=== PATIENT | female | born 1995 | race Caucasian/White ===

== ENCOUNTER 2019-09-22 20:49 | Emergency (ER) | payer OTHER ==
[~2019-09-22] VITALS: Ht 162.6 cm; Wt 104.7 kg
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
[2019-09-22] MEDS ORDERED: SERT50TA PO (21:07)
[2019-09-22 21:08] VITALS: BP 131/92
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
== END 2019-09-22 21:55 | disposition home or self-care (01) ==
LOC: ER 20:49
DX: S00.03XA Contusion of scalp, initial encounter (principal); R42 Dizziness and giddiness; R60.0 Localized edema; E04.9 Nontoxic goiter, unspecified; Z98.890 Other specified postprocedural states; Y08.89XA Assault by other specified means, initial encounter; Y93.89 Activity, other specified; Y92.89 Other specified places as the place of occurrence of the external cause; Y99.8 Other external cause status
CPT/HCPCS: 70450; 72125; 99285

== ENCOUNTER 2019-10-08 08:59 | Emergency (ER) | payer OTHER ==
[~2019-10-08] VITALS: Ht 162.6 cm; Wt 108.0 kg
[~2019-10-08 08:59] MED LIST: SERT50TA PO
[2019-10-08 09:15] VITALS: BP 117/78
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
--- NOTE | 2019-10-08 09:57 | RAD ---
CT scan of the facial bones without contrast 10/08/2019 CLINICAL HISTORY: Left mandibular pain. TECHNIQUE: Unenhanced, contiguous, 0.625 mm axial sections were obtained through the facial bones and orbits. 3 mm reconstructed sagittal, axial and coronal images were obtained. One or more of the following individualized dose reduction techniques were utilized for this study: 1. Automated exposure control. 2. Adjustment of the mA and/or kV according to patient size. 3. Use of iterative reconstruction technique. FINDINGS: No facial bone fractures seen. Both orbits are intact. Mild mucosal thickening is seen scattered throughout the paranasal sinuses. No air-fluid level is seen. The mastoid air cells and middle ear cavities are well aerated and are clear. The TMJs are intact. A fairly large caries is seen involving the anterior medial aspect of the left lower first molar. Impression: Mild mucosal thickening in seen scattered throughout the paranasal sinuses. No acute abnormality is seen. Electronically signed by: Timoteo Spann MD (10/08/2019 9:54 AM) [id number]
== END 2019-10-08 10:20 | disposition home or self-care (01) ==
LOC: ER 08:59
DX: S00.83XA Contusion of other part of head, initial encounter (principal); Y08.89XA Assault by other specified means, initial encounter; Y93.89 Activity, other specified; Y92.148 Other place in prison as the place of occurrence of the external cause; Y99.8 Other external cause status
CPT/HCPCS: 70486; 99284-25

== ENCOUNTER 2020-08-09 06:32 | Emergency (ER) | payer OTHER ==
[~2020-08-09] VITALS: Ht 162.6 cm; Wt 108.0 kg
[2020-08-09 06:42] VITALS: BP 124/83
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
== END 2020-08-09 08:30 | disposition home or self-care (01) ==
LOC: ER 06:32
DX: S09.90XA Unspecified injury of head, initial encounter (principal); W20.8XXA Other cause of strike by thrown, projected or falling object, initial encounter; Y93.89 Activity, other specified; Y92.89 Other specified places as the place of occurrence of the external cause; Y99.8 Other external cause status
CPT/HCPCS: 70450; 99284-25

== ENCOUNTER 2020-08-24 21:16 | Emergency (ER) | payer MEDICAID, OTHER ==
[~2020-08-24] VITALS: Ht 162.6 cm; Wt 100.0 kg
[2020-08-24] MEDS ORDERED: ONDANSETRON PF 4 MG/2 ML VIAL. ONE (21:32)
[2020-08-24] MEDS ORDERED: MORPHINE SULFATE 4 MG/ML DISP.SYRIN. ONE (21:33)
[2020-08-24] MEDS ORDERED: CONTRAST GIVEN. MC PRN (21:45)
[2020-08-24] MEDS ORDERED: HYDROmorphone PF 1 MG/ML DISP.SYRIN ONE (21:48)
--- NOTE | 2020-08-24 21:49 | PHYS DOC ---
Past History Past Medical History: Anxiety, Ovarian Cyst Additional Past Medical Histor: PCOS Past Surgical History: Other Additional Past Surgical Histo: Lt knee-repair of her ACL, MCL, and meniscus repair Alcohol Use: Occasionally General Adult EDM: Chief Complaint: ABDOMINAL PAIN HPI: HPI: 25-year-old female presents with sudden onset right lower quadrant abdominal pain. The patient ate around 1730 and developed pain around 1800. She describes it as an intense cramping sensation. It is 9 out of 10. She was lying on the floor in pain at home. The patient had a similar episode 6 months ago and was seen at another facility. It was a less intense episode but in the same area. All of her work-up at that time was negative. There were no cysts seen on ultrasound. Patient denies fever or chills. She has had vomiting. Review of Systems: Review of Systems: Constitutional: Denies fever or chills Eyes: Denies change in visual acuity HENT: Denies nasal congestion or sore throat Respiratory: Denies cough or shortness of breath Cardiovascular: Denies chest pain or edema GI: Right lower quadrant abdominal pain, nausea, vomiting. Denies bloody stools or diarrhea : Denies dysuria Musculoskeletal: Denies back pain or joint pain Integument: Denies rash Neurologic: Denies headache, focal weakness or sensory changes Endocrine: Denies polyuria or polydipsia Lymphatic: Denies swollen glands Psychiatric: Denies depression or anxiety Current Medications: Current Meds: Current Medications Medications (Trade) Dose Ordered Sig/Deneen Start Time Stop Time Status Last Admin Dose Admin Info (Do NOT chart on this entry -- for MONITORING) 1 each PRN DAILY PRN 08/24/20 21:45 08/26/20 21:44 Iohexol (Omnipaque 300 Mg/ml) 75 ml 1X ONCE 08/24/20 22:00 08/24/20 22:01 Morphine Sulfate (Morphine 4mg Syringe) 4 mg 1X ONCE 08/24/20 22:00 08/24/20 22:01 08/24/20 21:43 4 MG Ondansetron HCl (Zofran) 4 mg 1X ONCE 08/24/20 22:00 08/24/20 22:01 08/24/20 21:43 4 MG Sodium Chloride 1,000 ml @ 1,000 mls/hr 1X ONCE 08/24/20 22:00 08/24/20 22:59 08/24/20 21:43 1,000 MLS/HR Allergies: Allergies: Allergies Coded Allergies Type Severity Reaction Last Updated Verified No Known Drug Allergies 08/24/20 No Physical Exam: PE: Constitutional: Well developed, well nourished, obese, no acute distress, non- toxic appearance. [] HENT: Normocephalic, atraumatic, bilateral external ears normal, oropharynx mois t, no oral exudates, nose normal. [] Eyes: PERRLA, EOMI, conjunctiva normal, no discharge. [] Neck: Normal range of motion, no tenderness, supple, no stridor. [] Cardiovascular: Heart rate regular rhythm, no murmur [] Lungs & Thorax: Bilateral breath sounds clear to auscultation [] Abdomen: Bowel sounds normal, soft, moderate right lower quadrant tenderness with rebound, no masses, no pulsatile masses. [] Skin: Warm, dry, no erythema, no rash. [] Back: No tenderness, no CVA tenderness. [] Extremities: No tenderness, no cyanosis, no clubbing, ROM intact, no edema. [] Neurologic: Alert and oriented X 3, normal motor function, normal sensory function, no focal deficits noted. [] Psychologic: Affect normal, judgement normal, mood normal. [] Current Patient Data: Vital Signs: Vital Signs Date Time Temp Pulse Resp B/P (MAP) Pulse Ox O2 Delivery O2 Flow Rate FiO2 08/24/20 21:43 18 08/24/20 21:25 73 145/47 (79) 99 EKG: EKG: Sinus rhythm, rate 79, normal axis, no ST elevation or depression. [] Radiology/Procedures: Radiology/Procedures: [] Impressions: CTM pelvis with contrast dated 08/24/2020. No comparison available. Clinical data indication: Right lower quadrant pain. TECHNIQUE: Contiguous axial imaging the abdomen pelvis performed after the administration of 75 cc Omnipaque 300. One or more of the following individualized dose reduction techniques were utilized for this examination: 1. Automated exposure control 2. Adjustment of the mA and/or kV according to patient size 3. Use of iterative reconstruction technique. FINDINGS: Limited images of lung bases are clear. Heart size is upper limits of normal. No pleural or pericardial effusion. Liver is of diffuse low density suggesting mild fatty infiltration. There is a vague low-density focus within the inferior right lobe liver on image 25 that measures 1.7 cm. No biliary ductal dilatation. Gallbladder unremarkable. Spleen is normal in size. Pancreas and adrenal glands are unremarkable. There is a 4 mm calcific stone at the distal right ureter with mild proximal hydroureter and hydronephrosis. Asymmetric diminished enhancement the right kidney compared to left side. No left-sided stone or hydronephrosis. Unopacified GI tract normal in caliber and contour. No focal bowel wall thickening. No inflammatory stranding in the mesentery. Appendix normal in caliber. No ascites or lymphadenopathy. Abdominal aorta normal in caliber. Images of pelvis show nondistended urinary bladder. Uterus and adnexa are unremarkable. No free fluid or pelvic lymphadenopathy. Bone windows show no acute findings. Multilevel spondylosis. IMPRESSION: 1. There is a 4 mm calcific stone at the distal right ureter with mild obstructive uropathy. 2. Normal appendix. 3. Mild fatty infiltration of the liver. 4. There is an indeterminate vague low-density focus within the inferior right lobe liver. Follow-up hepatic MRI or ultrasound better evaluate. Electronically signed by: Dav Snow MD (08/24/2020 11:27 PM) [facility] [place] AND SIGNED BY: DAV SNOW MD DATE: 08/24/202322 CC: ADITHYA VALDES DO; PCP,NO ~MTH0 0 Heart Score: C/O Chest Pain: No Risk Factors: Risk Factors: DM, Current or recent (<one month) smoker, HTN, HLP, family history of CAD, obesity. Risk Scores: Score 0 - 3: 2.5% MACE over next 6 weeks - Discharge Home Score 4 - 6: 20.3% MACE over next 6 weeks - Admit for Clinical Observation Score 7 - 10: 72.7% MACE over next 6 weeks - Early Invasive Strategies Course & Med Decision Making: Course & Med Decision Making Pertinent Labs and Imaging studies reviewed. (See chart for details) The patient's labs are unremarkable. On arrival she was in quite a bit of discomfort. She was given from 4 mg of Zofran and 4 mg of morphine. She required an additional 2 doses of 1 mg of Dilaudid each for pain control. No urinary tract infection. CT scan shows a 4 mm distal ureteral stone. See official read for details. Creatinine is 1.1. Is still possible that this could pass. I will give the patient [place] 7.5 for home. She will follow-up with urology. She is stable for discharge at this time. [] Mary Disclaimer: Mary Disclaimer: This electronic medical record was generated, in whole or in part, using a voice recognition dictation system. Departure Departure: Impression: Primary Impression: Kidney stone on right side Disposition: HOME / SELF CARE / HOMELESS Condition: STABLE Referrals: PCP,JABARI (PCP) Patient Instructions: Kidney Stones, [id number] Scripts Hydrocodone Bit/Acetaminophen (HYDROCODONE-APAP 7.5-325 ) 1 Each Tablet 1 TAB PO PRN Q6HRS PRN for PAIN, #20 TAB 0 Refills Prov: ADITHYA VALDES DO 08/25/20 ADITHYA VALDES DO Aug 24, 2020 21:49
[2020-08-24] MEDS ORDERED: ONDANSETRON PF 4 MG/2 ML VIAL. IVP ONE ×2 (22:00)
[2020-08-24] MEDS ORDERED: IOHEXOL 300 MG/ML 75 ML VIAL. IV ONE (22:00)
[2020-08-24] MEDS ORDERED: PROCHLORPERAZINE 10 MG/2 ML VIAL. IV ONE (22:00)
[2020-08-24] MEDS ORDERED: MORPHINE SULFATE 4 MG/ML DISP.SYRIN. IV ONE (22:00)
[2020-08-24] MEDS ORDERED: HYDROmorphone PF 1 MG/ML DISP.SYRIN IVP ONE ×2 (22:00→23:00)
[2020-08-24] MEDS ORDERED: IV NORMAL SALINE 1,000ML 1,000 ML IV ONE (22:00)
[2020-08-24 22:08] LABS: BASO % 0 % (0-3); EOS # 0.1 x10^3/uL (0.0-0.7); EOS % 1 % (0-3); HEMATOCRIT 42.1 % (36.0-47.0); HEMOGLOBIN 14.4 g/dL (12.0-15.5); LYMPH # 2.3 x10^3/uL (1.0-4.8); LYMPH % 23 % (24-48); MEAN CORPUSCULAR HEMOGLOBIN 33 pg (25-35); MEAN CORPUSCULAR HGB CONC 34 g/dL (31-37); MEAN CORPUSCULAR VOLUME 97 fL (79-100); MONO # 0.7 x10^3/uL (0.0-1.1); MONO % 7 % (0-9); NEUT # 7.1 x10^3uL (1.8-7.7); NEUT % 70 % (31-73); PLATELET COUNT 273 x10^3/uL (140-400); RED BLOOD COUNT 4.35 x10^6/uL (3.50-5.40); WHITE BLOOD COUNT 10.3 x10^3/uL (4.0-11.0)
[2020-08-24 22:24] LABS: CALCIUM 8.8 mg/dL (8.5-10.1); CREATININE 1.1 mg/dL (0.6-1.0); GFR 59.6; POTASSIUM 3.4 mmol/L (3.5-5.1)
[2020-08-24 22:28] LABS: BACTERIA,URINE FEW /HPF (0-FEW); BILIRUBIN,URINE NEG (NEG); CLARITY,URINE HAZY; COLOR,URINE YELLOW; GLUCOSE,URINE NEG (NEG); NITRITE,URINE NEG (NEG); RBC,URINE OCC /HPF (0-2); SQUAMOUS EPITHELIAL CELL,UR MOD /LPF
[2020-08-24 22:30] LABS: ALBUMIN 4.2 g/dL (3.4-5.0); ALBUMIN/GLOBULIN RATIO 1.2 (1.0-1.7); TOTAL BILIRUBIN 1.5 mg/dL (0.2-1.0); TOTAL PROTEIN 7.8 g/dL (6.4-8.2)
[2020-08-24 22:31] LABS: BARBITURATES NEG (NEG); BENZODIAZEPINES NEG (NEG); CANNABINOIDS NEG (NEG); COCAINE NEG (NEG); METHADONE NEG (NEG); OPIATES POS (NEG); PHENCYCLIDINE NEG (NEG)
[2020-08-24 22:39] LABS: AMPHETAMINE/METHAMPHETAMINE NEG (NEG)
--- NOTE | 2020-08-24 23:29 | RAD ---
CTM pelvis with contrast dated 08/24/2020. No comparison available. Clinical data indication: Right lower quadrant pain. TECHNIQUE: Contiguous axial imaging the abdomen pelvis performed after the administration of 75 cc Omnipaque 300 . One or more of the following individualized dose reduction techniques were utilized for this examinat ion: 1. Automated exposure control 2. Adjustment of the mA and/or kV according to patient size 3. Use of iterative reconstruction technique. FINDINGS: Limited images of lung bases are clear. Heart size is upper limits of normal. No pleural or pericardi al effusion. Liver is of diffuse low density suggesting mild fatty infiltration. There is a vague low-density focu s within the inferior right lobe liver on image 25 that measures 1.7 cm. No biliary ductal dilatation . Gallbladder unremarkable. Spleen is normal in size. Pancreas and adrenal glands are unremarkable. There is a 4 mm calcific ston e at the distal right ureter with mild proximal hydroureter and hydronephrosis. Asymmetric diminished enhancement the right kidney compared to left side. No left-sided stone or hydronephrosis. Unopacified GI tract normal in caliber and contour. No focal bowel wall thickening. No inflammatory s tranding in the mesentery. Appendix normal in caliber. No ascites or lymphadenopathy. Abdominal aorta normal in caliber. Images of pelvis show nondistended urinary bladder. Uterus and adnexa are unremarkable. No free fluid or pelvic lymphadenopathy. Bone windows show no acute findings. Multilevel spondylosis. IMPRESSION: 1. There is a 4 mm calcific stone at the distal right ureter with mild obstructive uropathy. 2. Normal appendix. 3. Mild fatty infiltration of the liver. 4. There is an indeterminate vague low-density focus within the inferior right lobe liver. Follow-up hepatic MRI or ultrasound better evaluate. Electronically signed by: Dav Snow MD (08/24/2020 11:27 PM) [facility]
[2020-08-25] MEDS ORDERED: HYDR-2765 PO (00:06)
[2020-08-25 00:09] VITALS: BP 130/58
[2020-08-25] MEDS ORDERED: HYDROcodone/APAP 7.5/325MG 1 TAB TABLET PO ONE (00:30)
== END 2020-08-25 00:18 | disposition home or self-care (01) ==
LOC: ER 21:16
DX: N13.2 Hydronephrosis with renal and ureteral calculous obstruction (principal); F41.9 Anxiety disorder, unspecified
CPT/HCPCS: 36415; 74177; 80053; 80307; 81001; 81025; 85025; 87086; 96361; 96374; 96375; 96376; 99285; J0780; J1170; J2270; J2405; J7030; Q9967